=== PATIENT | male | born 1975 | race Caucasian/White ===

== ENCOUNTER 2018-03-11 13:43 | Emergency (ER) | payer SELFPAY ==
[~2018-03-11] VITALS: Ht 177.8 cm; Wt 63.0 kg
[2018-03-11] MEDS ORDERED: KETOROLAC TROMETHAMINE INJ 30 MG/ML VIAL IV STA (14:19)
[2018-03-11] MEDS ORDERED: CLINDAMYCIN 600 MG in IV D5W 100 ML IV ONE (14:30)
[2018-03-11] MEDS ORDERED: DEXAMETHASONE SOD PHOSPHATE 10 MG/ML VIAL IV ONE (14:30)
[2018-03-11] MEDS ORDERED: IV NS 0.9% 1,000 ML BAG IV ONE (14:30)
[2018-03-11 14:35] LABS: BASOPHILS # (AUTO) 0.1 /CMM (0.0-0.2); BASOPHILS % (AUTO) 0.8 % (0.0-2.0); EOSINOPHILS % (AUTO) 0.2 % (0.0-6.0); HEMATOCRIT 42 % (39-51); HEMOGLOBIN 13.9 g/dL (13.5-17.5); LYMPHOCYTES # (AUTO) 1.1 /CMM (0.8-4.8); MEAN CORPUSCULAR HGB CONC 33 g/dl (31.0-36.0); MEAN CORPUSCULAR VOLUME 92 fL (80-96); MONOCYTES # (AUTO) 1.3 /CMM (0.1-1.30); NEUTROPHILS # (AUTO) 13.2 /CMM (1.8-8.9); PLATELET COUNT (AUTO) 334 /CMM (150-450); RDW COEFFICIENT OF VARIATION 12.2 (11.5-15.0); RED BLOOD CELL COUNT(AUTO) 4.61 MIL/uL (4.5-6.0); WHITE BLOOD COUNT (AUTO) 15.7 K/uL (4.3-11.0)
[2018-03-11] MEDS ORDERED: DEXAMETHASONE SOD PHOSPHATE 10 MG/ML VIAL ONE (14:46)
[2018-03-11] MEDS ORDERED: KETOROLAC TROMETHAMINE INJ 30 MG/ML VIAL ONE (14:47)
[2018-03-11 14:51] LABS: CALCIUM, SERUM 9.4 mg/dL (8.5-10.1); CREATININE 0.9 mg/dL (0.6-1.3); POTASSIUM 4.3 mmol/L (3.5-5.1)
[2018-03-11 14:57] LABS: BILIRUBIN,TOTAL 0.8 mg/dL (0.2-1.0); TOTAL PROTEIN, SERUM 7.9 g/dL (6.4-8.2)
--- NOTE | 2018-03-11 15:12 | NUR ---
BIBRA 878 C/O THROAT PAIN, DIFFICULTY SWALLOWING X 2 DAYS. PT AAOX3, VSS. DENIES CP, SOB, DIZZINESS, N/V @ THIS TIME. MEDICATED FOR THROAT PAIN, PT JATINDER WELL. PT TO CT VIA MARCOS.
[2018-03-11] MEDS ORDERED: TETRACAINE/BENZOCAINE/BUTAMBEN 56 GM SPRAY TP ONE ×2 (15:25→15:30)
[2018-03-11] MEDS ORDERED: LIDOCAINE 1% INJ 50 ML MDV IJ ONE ×2 (15:30→15:47)
--- NOTE | 2018-03-11 16:00 | NUR ---
PT SITTING UP, DRINKING WATER & ABLE TO SWALLOW WITHOUT DIFFICULTY. PT STABLE, NAD NOTED @ THIS TIME. WILL CONT TO MONITOR.
--- NOTE | 2018-03-11 17:09 | NUR ---
DR. WELSH @ BS FOR I&D OF PERITONSILAR ABSCESS.
--- NOTE | 2018-03-11 17:35 | NUR ---
PT EATING A SANDWICH & ABLE TO SWALLOW WITHOUT DIFFICULTY & NAD NOTED UPON DC.
--- NOTE | 2018-03-11 17:35 | NUR ---
Patient discharged to home in stable condition. Written and verbal after care instructions given. Patient verbalizes understanding of instruction.
[2018-03-11 17:37] VITALS: BP 118/70
== END 2018-03-11 17:38 | disposition home or self-care (01) ==
LOC: ER 13:45
DX: J36 Peritonsillar abscess (principal); F17.200 Nicotine dependence, unspecified, uncomplicated
CPT/HCPCS: 36415; 70491; 80053; 85025; 96365; 96375; 99285; J1100; J1885; J3490 ×2; J7030; J7060; A4606; Z7610

== ENCOUNTER 2018-05-16 15:44 | Emergency (ER) | payer SELFPAY ==
[~2018-05-16] VITALS: Ht 175.3 cm; Wt 66.0 kg
--- NOTE | 2018-05-16 15:57 | NUR ---
Initial contact with pt , no aute distress c/o pain , swelling , redness. drainage left index finger appear to be abcess , waiting for MD cobb
[2018-05-16] MEDS ORDERED: IV NS 0.9% 1,000 ML BAG IV ONE (16:30)
[2018-05-16] MEDS ORDERED: VANCOMYCIN 1 GM in IV D5W 250 ML IV ONE (16:30)
[2018-05-16] MEDS ORDERED: VANCOMYCIN 1 GM VIAL ONE (16:32)
[2018-05-16 16:36] LABS: BASOPHILS # (AUTO) 0.1 /CMM (0.0-0.2); BASOPHILS % (AUTO) 0.8 % (0.0-2.0); EOSINOPHILS % (AUTO) 4.2 % (0.0-6.0); HEMATOCRIT 44 % (39-51); HEMOGLOBIN 14.4 g/dL (13.5-17.5); LYMPHOCYTES # (AUTO) 1.9 /CMM (0.8-4.8); LYMPHOCYTES % (AUTO) 24.2 % (20.0-44.0); MEAN CORPUSCULAR HGB CONC 33 g/dl (31.0-36.0); MEAN CORPUSCULAR VOLUME 94 fL (80-96); MONOCYTES # (AUTO) 0.6 /CMM (0.1-1.30); MONOCYTES % (AUTO) 7.9 % (2.0-12.0); NEUTROPHILS # (AUTO) 4.8 /CMM (1.8-8.9); NEUTROPHILS % (AUTO) 62.9 % (43.0-81.0); PLATELET COUNT (AUTO) 220 /CMM (150-450); RED BLOOD CELL COUNT(AUTO) 4.62 MIL/uL (4.5-6.0); WHITE BLOOD COUNT (AUTO) 7.7 K/uL (4.3-11.0)
--- NOTE | 2018-05-16 16:43 | NUR ---
Dr Ramirez seen and eval pt discussed plan of care
--- NOTE | 2018-05-16 16:44 | NUR ---
Instructed to collect urine sample - given urinal
[2018-05-16 16:46] LABS: CALCIUM, SERUM 8.8 mg/dL (8.5-10.1); CREATININE 0.7 mg/dL (0.6-1.3); POTASSIUM 4.5 mmol/L (3.5-5.1)
--- NOTE | 2018-05-16 17:22 | NUR ---
urine sent to lab.wound care performed by Amado piña
[2018-05-16 17:39] LABS: APPEARANCE,URINE Clear (CLEAR); BILIRUBIN,URINE Negative (NEGATIVE); BLOOD, URINE Negative Ery/uL (NEGATIVE); COLOR,URINE Yellow (YELLOW); KETONES,URINE Trace (NEGATIVE); LEUKOCYTE ESTERASE ,URINE Negative (NEGATIVE); NITRITE, URINE Negative (NEGATIVE); PH,URINE 5.5 (5.0-8.0); PROTEIN,URINE Negative (NEGATIVE); UGLUCOSE Negative (NEGATIVE); UROBILINOGEN,URINE 0.2 EU/dL (0.2)
[2018-05-16 18:00] LABS: BACTERIA,URINE None seen /HPF (None Seen); RBC,URINE 0-2 /HPF (0-2); SQUAMOUS EPITHELIAL CELL,UR 0-2 /HPF (None Seen); WBC,URINE 0-2 /HPF (0-3)
[2018-05-16 18:01] LABS: CALCIUM OXALATE CRYSTALS,UR Few /HPF (None Seen); MUCUS,URINE Rare /LPF (None Seen)
--- NOTE | 2018-05-16 18:13 | NUR ---
IV antibiotic completed , dced NS lock with dressing placed. Pt signed out AMA
[2018-05-16 18:14] VITALS: BP 115/75
== END 2018-05-16 18:15 | disposition left against medical advice (07) ==
LOC: ER 15:45
DX: L02.512 Cutaneous abscess of left hand (principal); L03.012 Cellulitis of left finger; Z59.0 Homelessness
CPT/HCPCS: 36415; 80048-TC; 80305; 81000-TC; 83605-TC; 85025-TC; 87040-TC; A4606; A6402; J3370; J7030; Z7610

== ENCOUNTER 2018-09-06 18:18 | Emergency (ER) | payer SELFPAY ==
[~2018-09-06] VITALS: Ht 177.8 cm; Wt 63.5 kg
[2018-09-06 18:32] VITALS: BP 123/74
[2018-09-06] MEDS ORDERED: IBUPROFEN 600 MG TABLET PO ONE ×2 (19:00→19:02)
[2018-09-06] MEDS ORDERED: CLINDAMYCIN 900 MG/6 ML VIAL IM ONE (19:00)
[2018-09-06] MEDS ORDERED: HYDROCODONE/APAP 5/325MG 1 EACH TABLET PO ONE (19:00)
[2018-09-06] MEDS ORDERED: HYDROCODONE/APAP 5/325MG 1 EACH TABLET ONE (19:02)
[2018-09-06] MEDS ORDERED: CLINDAMYCIN 900 MG/6 ML VIAL ONE (19:02)
[2018-09-06] MEDS ORDERED: CLINDAMYCIN HCL 150 MG CAPSULE PO ONE ×2 (19:16→19:30)
--- NOTE | 2018-09-06 19:29 | NUR ---
Patient discharged to home in stable condition. Written and verbal after care instructions given. Patient verbalizes understanding of instruction.
== END 2018-09-06 19:39 | disposition home or self-care (01) ==
LOC: ER 18:19
DX: L02.416 Cutaneous abscess of left lower limb (principal); Z59.0 Homelessness; W57.XXXA Bitten or stung by nonvenomous insect and other nonvenomous arthropods, initial encounter; Y93.89 Activity, other specified; Y92.89 Other specified places as the place of occurrence of the external cause; Y99.8 Other external cause status
CPT/HCPCS: 99284; J3490

== ENCOUNTER 2019-01-11 09:00 | Emergency (ER) | payer SELFPAY ==
[~2019-01-11] VITALS: Ht 177.8 cm; Wt 72.1 kg
--- NOTE | 2019-01-11 09:11 | NUR ---
CAME IN FOR R ARM ABSCESS "last used heroin couple days ago". TO ER BED 12, HOOKED TO MONITOR, AWAITING MD CRUZ.
--- NOTE | 2019-01-11 09:12 | NUR ---
DR ESTRADA AT BEDSIDE
[2019-01-11] MEDS ORDERED: LIDOCAINE 0.5% HCL 50 ML VIAL ONE (09:16)
[2019-01-11] MEDS ORDERED: SULFAMETH/TRIMETH 800/160 MG 1 UDTAB TABLET ONE (09:22)
[2019-01-11] MEDS ORDERED: SULFAMETH/TRIMETH 800/160 MG 1 UDTAB TABLET PO ONE (09:30)
[2019-01-11] MEDS ORDERED: LIDOCAINE HCL/PF 1% 30 ML VIAL TP ONE (09:30)
--- NOTE | 2019-01-11 09:54 | NUR ---
DR ESTRADA AT BEDSIDE FOR I&D.
--- NOTE | 2019-01-11 10:15 | NUR ---
WOUND CARE DONE.
[2019-01-11 10:19] VITALS: BP 122/76
--- NOTE | 2019-01-11 10:19 | NUR ---
Patient given written and verbal discharge instructions. Patient verbalizes understanding of instructions. Patient is ambulatory with steady gait. Refuses offer of correction placement. Patient given list of available shelters in surrounding area.
== END 2019-01-11 10:21 | disposition home or self-care (01) ==
LOC: ER 09:00
DX: L02.413 Cutaneous abscess of right upper limb (principal); Z59.0 Homelessness
CPT/HCPCS: 10060; 99283; A6403; A6407; J3490 ×2

== ENCOUNTER 2019-01-12 10:34 | Emergency (ER) | payer SELFPAY ==
[~2019-01-12] VITALS: Ht 177.8 cm; Wt 73.0 kg
[2019-01-12 11:09] VITALS: BP 123/78
[2019-01-12] MEDS ORDERED: SULFAMETH/TRIMETH 800/160 MG 1 UDTAB TABLET ONE (12:25)
[2019-01-12] MEDS ORDERED: SULFAMETH/TRIMETH 800/160 MG 1 UDTAB TABLET PO ONE (12:30)
--- NOTE | 2019-01-12 12:30 | NUR ---
Social service consult requested by CARMENZA Flores for homelessness. Pt. is a 43 year old male who came to [facility] for removal of gauze. SW met with pt. bedside. Pt. is alert and oriented x 4. Pt. was cooperative and pleasant with SW during the assessment. Pt. had a sad affect. Pt. states he has been living on the streets for the past year. Pt. moved from [place] with his girlfriend Martí[place], however his girlfriend delivered the baby and left him. The baby is in custody of the state. Pt. has no whereabouts of the girlfriend and baby and expressed feeling sad. Pt. denies suicidal and homicidal ideations at this time. SW offered pt. [facility] placement, however pt. declined stating, " I do not trust those places." Pt. is a drug user and states he uses heroin and methamphetamines whenever he can. Pt. last used two days ago. Pt. has no history of attending a drug rehabilitation program and stated, " I can stop if I get to see my girlfriend." Pt. appears to be a bit distraught about his girlfriend. Pt. has signed up for housing with [facility] and is awaiting housing. Pt. is familiar with [facility] since he use to receive services there when his girlfriend was . SW encourage pt. to follow up with [facility] and [facility]. SW also encouraged pt. to go to [facility] and apply for General Relief and Food stamps. Pt. is linked to [facility] and awaiting to receive his ID at the center. Pt. was provided with the following resources: [facility] [place] [address] ; [facility] [place], [address], [place] ; [facility] [place], [address] ; [facility] Homeless Resource Directory which includes food stamps, transitional housing, showers and hot meals etc; Mental Health clinics such as [facility] ; [facility] ; Health clinics;[facility] and Alcohol treatment centers such as [facility], ; [facility] Substance Abuse Hotline and [facility] . Pt. was provided with a sandwich, soda and TAP card. Homeless Patient Waiver form was signed by the pt. and placed in pt's chart.
--- NOTE | 2019-01-12 12:47 | NUR ---
PT RECEIVED SANDWICH AND TAP CARD
== END 2019-01-12 12:30 | disposition home or self-care (01) ==
LOC: ER 10:37
DX: Z48.01 Encounter for change or removal of surgical wound dressing (principal); Z59.0 Homelessness